=== PATIENT | female | born 1980 | race American Indian/Alaskan Native ===

== ENCOUNTER 2017-11-24 12:01 | Outpatient (CLI) | payer OTHER ==
[2017-11-24 12:39] LABS: Blood Urea Nitrogen 7 mg/dL (7-17)
[2017-11-24] MEDS ORDERED: NACL 0.9% 50 ML ONE (12:59)
--- NOTE | 2017-11-24 13:39 | Cat Scan Report ---
CTA CHEST: HISTORY: Shortness of breath, pain in leg. COMPARISON: none. TECHNIQUE: Helical CT in 1.25mm intervals following IV contrast. Pulmonary embolus protocol. Sagittal and coronal reformatted images. Rotational MIP images. FINDINGS: Contrast bolus is satisfactory. No pulmonary embolus is identified. Thyroid gland: Normal. Tracheobronchial tree: Normal. Esophagus: Normal. Heart: Normal. Pericardium: Normal. Mediastinum: Normal. Lung Keys: Normal. Pleural Spaces: Normal. Musculoskeletal: Normal. IMPRESSION: No evidence for pulmonary embolus. Unremarkable CT chest with contrast.
== END 2017-11-24 12:02 | disposition home or self-care (01) ==
LOC: CT 12:01
PROVIDERS: ATTEND Internal Medicine Cardiovascular Disease
DX: R06.02 Shortness of breath (principal); I10 Essential (primary) hypertension; J45.909 Unspecified asthma, uncomplicated; K21.9 Gastro-esophageal reflux disease without esophagitis; E66.9 Obesity, unspecified
CPT/HCPCS: 36415; 71275; 82565; 84520; Q9967